=== PATIENT | male | born 1995 | race Two or more races ===

== ENCOUNTER 2022-04-04 10:48 | Emergency (ER) | payer MEDICAID, OTHER ==
[~2022-04-04] VITALS: Ht 195.6 cm; Wt 73.0 kg
[2022-04-04 13:18] LABS: Urine Bacteria NONE SEEN /hpf (None Seen); Urine Blood Negative /uL (Negative); Urine Specific Gravity 1.019 (1.001-1.035); Urine WBC <1 /hpf (0 - 3)
[2022-04-04] MEDS ORDERED: INDO50CA82 PO (14:20)
[2022-04-04 14:30] VITALS: BP 108/54
== END 2022-04-04 14:33 | disposition home or self-care (01) ==
LOC: ER 10:48
DX: I86.1 Scrotal varices (principal); Z88.0 Allergy status to penicillin
CPT/HCPCS: 76870; 81001

== ENCOUNTER 2022-04-30 11:14 | Emergency (ER) | payer MEDICAID ==
[~2022-04-30] VITALS: Ht 195.6 cm; Wt 68.8 kg
[~2022-04-30 11:14] MED LIST: INDO50CA82 PO
[2022-04-30 14:18] VITALS: BP 121/74
[2022-04-30] MEDS ORDERED: cefTRIAXone SOD 1,000 MG VL IM ONE (14:30)
[2022-04-30] MEDS ORDERED: methylPREDNISolone SOD SUCC 125 MG/2 ML VL IM ONE (14:30)
[2022-04-30] MEDS ORDERED: DOXY-332 PO (14:31)
[2022-04-30] MEDS ORDERED: PRED20TA2 PO (14:31)
[2022-04-30] MEDS ORDERED: ALBUAER3 IN (14:36)
[2022-04-30] MEDS ORDERED: LIDOCAINE 1% HCL (LOCAL ANESTH.) INJ 20ML MDV ONE (14:39)
== END 2022-04-30 17:04 | disposition home or self-care (01) ==
LOC: ER 11:14
DX: J20.9 Acute bronchitis, unspecified (principal)
CPT/HCPCS: 36415; 71045; 87426; 96372; 99284; J0696; J2001; J2930